=== PATIENT | male | born 1995 | race African-American/Black ===

== ENCOUNTER 2018-07-30 21:47 | Emergency (ER) | payer OTHER ==
[~2018-07-30] VITALS: Ht 190.5 cm; Wt 85.0 kg
[2018-07-31 00:23] VITALS: BP 119/77
== END 2018-07-31 00:25 | disposition home or self-care (01) ==
LOC: EMS 21:47
DX: T73.0XXA Starvation, initial encounter (principal); T44.905A Adverse effect of unspecified drugs primarily affecting the autonomic nervous system, initial encounter; F12.90 Cannabis use, unspecified, uncomplicated